=== PATIENT | male | born 1940 | race Asian ===

== ENCOUNTER 2022-03-06 09:44 | Inpatient (IN) | payer OTHER ==
[2022-03-06 10:01] VITALS: BMI 22.3
[2022-03-06] MEDS ORDERED: SODIUM CHLORIDE 1,769 ML IV ONE (10:20)
[2022-03-06 11:03] LABS: VENOUS BASE EXCESS 2.8 mmol/L (-2-2); VENOUS O2 SATURATION 63.5 % (70-80); VENOUS PCO2 40.3 mmHg (38-52); VENOUS PH 7.445 (7.310-7.410)
[2022-03-06 11:08] LABS: INR 1.29 (0.83-1.09); PROTHROMBIN TIME (PATIENT) 14.9 SEC (9.7-13.0)
[2022-03-06] MEDS ORDERED: NYSTATIN 500,000 UNITS/5 ML SUSPENSION PO ONE (11:09)
[2022-03-06] MEDS ORDERED: CEFTRIAXONE 1,000 MG in DEXTROSE 5%-WATER - 50 ML IVPB ONE (11:10)
[2022-03-06] MEDS ORDERED: AZITHROMYCIN IVPB 500 MG in DEXTROSE 5%-WATER - 250 ML IVPB ONE (11:10)
[2022-03-06 11:11] LABS: ACTIVATED PTT 31.6 SECONDS (25.2-36.5)
[2022-03-06] MEDS ORDERED: CEFTRIAXONE 1 GM/50 ML BAG ONE (11:16)
[2022-03-06 11:22] LABS: CHLORIDE 96 mmol/L (98-107); SODIUM 133 mmol/L (136-145)
[2022-03-06 11:24] LABS: ALBUMIN 2.2 g/dl (3.4-5.0); ANION GAP 10 MMOL/L (8-16); BLOOD UREA NITROGEN 11.8 mg/dL (7-18); CALCIUM 8.8 mg/dL (8.5-10.1); CO2 27 mmol/L (21-32); GLUCOSE,RANDOM 372 mg/dL (74-106)
[2022-03-06 11:27] LABS: CREATININE 0.8 mg/dL (0.55-1.3); SGOT/AST 49 U/L (15-37); SGPT/ALT 88 U/L (13-61)
[2022-03-06 11:29] LABS: BILIRUBIN,TOTAL 0.5 mg/dL (0.2-1); TOT PROT 7.9 g/dl (6.4-8.2)
[2022-03-06 11:30] LABS: ALK PHOS 148 U/L (45-117)
[2022-03-06] MEDS ORDERED: AZITHROMYCIN IVPB 500 MG/250 ML BAG IVPB ONE (11:37)
[2022-03-06 11:40] LABS: BASO % 0.3 % (0-2.0); EOS % 0.1 % (0-4.5); HEMATOCRIT 30.2 % (35.4-49); HEMOGLOBIN 9.7 GM/dL (11.7-16.9); LYMPH % 7.9 % (8-40); MCH 25.3 pg (25.7-33.7); MCHC 32.1 g/dl (32.0-35.9); MEAN CELL VOLUME 78.9 fl (80-96); MEAN PLT VOLUME 7.1 fl (7.5-11.1); MONO % 9.7 % (3.8-10.2); PLATELET COUNT 646 10^3/uL (134-434); RBC 3.83 M/mm3 (4.00-5.60); RDW 14.7 % (11.9-15.9)
[2022-03-06] MEDS ORDERED: INSULIN REGULAR HUMAN 100 UNITS/ML *VIAL SQ ONE (12:58)
[2022-03-06] MEDS ORDERED: VANCOMYCIN 1 GM in D5W (PRE-DOCKED) 1,000 MG/250 ML IVPB ONE (13:18)
[2022-03-06] MEDS ORDERED: ACETAMINOPHEN 1000 MG/100 ML BAG IVPB ONE (14:04)
[2022-03-06] MEDS ORDERED: VANCOMYCIN/WATER FOR INJ (PEG) 1,000 MG/200 ML BAG IVPB ONE (14:05)
[2022-03-06] MEDS ORDERED: INSULIN REGULAR HUMAN 100 UNITS/ML *VIAL ONE (14:06)
[2022-03-06] MEDS ORDERED: ACETAMINOPHEN INJECTION 100 ML IVPB ONE (14:30)
[2022-03-06] MEDS ORDERED: ENOXAPARIN NA (PORCINE) 40 MG/0.4 ML DISP.SYRIN SQ ONE (19:57)
[2022-03-06] MEDS: ENOXAPARIN NA (PORCINE) 40 MG/0.4 ML DISP.SYRIN SQ SCH (20:05)
[2022-03-06] MEDS: AMPICILLIN NA/SULBACTAM NA 3 GM in SODIUM CHLORIDE 100 ML IVPB SCH (20:05)
[2022-03-06] MEDS: D5-1/2NS+20 MEQ KCL - 20 MEQ/1,000 ML INFUS.BAG IV SCH (20:56)
[2022-03-06] MEDS: INSULIN SLIDING SCALE (NOVOLOG) 1 VIAL SQ SCH (23:13)
[2022-03-07] MEDS ORDERED: AMPICILLIN NA/SULBACTAM NA 3 GM VIAL ONE ×3 (00:47→18:15)
[2022-03-07] MEDS ORDERED: SODIUM CHLORIDE 100 ML IVPB ONE ×3 (00:48→18:15)
[2022-03-07] MEDS ORDERED: ACETAMINOPHEN INJECTION 100 ML IVPB ONE (00:48)
[2022-03-07] MEDS: AMPICILLIN NA/SULBACTAM NA 3 GM in SODIUM CHLORIDE 100 ML IVPB SCH ×3 (01:24→19:34)
[2022-03-07] MEDS: INSULIN SLIDING SCALE (NOVOLOG) 1 VIAL SQ SCH ×4 (06:18→22:57)
[2022-03-07 09:08] LABS: HEMATOCRIT 29.5 % (35.4-49); HEMOGLOBIN 9.4 GM/dL (11.7-16.9); MCH 24.9 pg (25.7-33.7); MCHC 31.8 g/dl (32.0-35.9); MEAN CELL VOLUME 78.4 fl (80-96); MEAN PLT VOLUME 7.2 fl (7.5-11.1); PLATELET COUNT 628 10^3/uL (134-434); RBC 3.76 M/mm3 (4.00-5.60); RDW 14.4 % (11.9-15.9); WHITE BLOOD COUNT 20.1 K/mm3 (4.0-10.0)
[2022-03-07 10:07] LABS: CREATININE 0.6 mg/dL (0.55-1.3)
[2022-03-07 10:08] LABS: BILIRUBIN,TOTAL 0.5 mg/dL (0.2-1); TOT PROT 6.3 g/dl (6.4-8.2)
[2022-03-07] MEDS: ENOXAPARIN NA (PORCINE) 40 MG/0.4 ML DISP.SYRIN SQ SCH (10:15)
[2022-03-07 10:39] LABS: ALBUMIN 1.7 g/dl (3.4-5.0)
[2022-03-07 12:36] LABS: ANISOCYTOSIS 1+; MACROCYTOSIS 0; TARGET CELLS 1+; TEAR DROP CELLS 1+
[2022-03-07] MEDS: D5-1/2NS+20 MEQ KCL - 20 MEQ/1,000 ML INFUS.BAG IV SCH ×2 (12:37→17:48)
[2022-03-08] MEDS ORDERED: AMPICILLIN NA/SULBACTAM NA 3 GM VIAL ONE ×3 (01:19→17:51)
[2022-03-08] MEDS ORDERED: SODIUM CHLORIDE 100 ML IVPB ONE ×3 (01:20→17:52)
[2022-03-08] MEDS: AMPICILLIN NA/SULBACTAM NA 3 GM in SODIUM CHLORIDE 100 ML IVPB SCH ×3 (01:32→18:06)
[2022-03-08] MEDS: INSULIN SLIDING SCALE (NOVOLOG) 1 VIAL SQ SCH ×4 (06:45→21:36)
[2022-03-08] MEDS ORDERED: INSULIN (LEVEMIR) 100 UNITS/ML UNITS SQ SCH ×2 (07:00→22:00)
[2022-03-08] MEDS: ENOXAPARIN NA (PORCINE) 40 MG/0.4 ML DISP.SYRIN SQ SCH (10:28)
[2022-03-08] MEDS: PANTOPRAZOLE 40 MG TABLET PO SCH (10:29)
[2022-03-08] MEDS: D5-1/2NS+20 MEQ KCL - 20 MEQ/1,000 ML INFUS.BAG IV SCH ×2 (12:47→18:13)
[2022-03-08 13:47] LABS: HEMATOCRIT 30.3 % (35.4-49); HEMOGLOBIN 9.8 GM/dL (11.7-16.9); MCH 25.2 pg (25.7-33.7); MCHC 32.3 g/dl (32.0-35.9); MEAN CELL VOLUME 77.9 fl (80-96); MEAN PLT VOLUME 6.9 fl (7.5-11.1); PLATELET COUNT 625 10^3/uL (134-434); RBC 3.89 M/mm3 (4.00-5.60); RDW 14.9 % (11.9-15.9); WHITE BLOOD COUNT 16.5 K/mm3 (4.0-10.0)
[2022-03-08 14:20] LABS: ALBUMIN 1.8 g/dl (3.4-5.0); BLOOD UREA NITROGEN 8.9 mg/dL (7-18); CALCIUM 8.4 mg/dL (8.5-10.1)
[2022-03-08 14:24] LABS: CREATININE 0.6 mg/dL (0.55-1.3)
[2022-03-08 14:25] LABS: BILIRUBIN,TOTAL 0.5 mg/dL (0.2-1); TOT PROT 6.5 g/dl (6.4-8.2)
[2022-03-08] MEDS: ACETAMINOPHEN 325 MG TABLET (FP) PO PRN (19:12)
[2022-03-09] MEDS ORDERED: AMPICILLIN NA/SULBACTAM NA 3 GM VIAL ONE ×3 (01:44→17:04)
[2022-03-09] MEDS ORDERED: SODIUM CHLORIDE 100 ML IVPB ONE ×3 (01:44→17:05)
[2022-03-09] MEDS: AMPICILLIN NA/SULBACTAM NA 3 GM in SODIUM CHLORIDE 100 ML IVPB SCH ×3 (01:52→17:15)
[2022-03-09] MEDS: D5-1/2NS+20 MEQ KCL - 20 MEQ/1,000 ML INFUS.BAG IV SCH ×3 (05:26→23:04)
[2022-03-09] MEDS ORDERED: INSULIN (LEVEMIR) 100 UNITS/ML UNITS SQ ONE (05:57)
[2022-03-09] MEDS: INSULIN (LEVEMIR) 100 UNITS/ML UNITS SQ SCH (06:33)
[2022-03-09] MEDS: INSULIN SLIDING SCALE (NOVOLOG) 1 VIAL SQ SCH ×4 (06:35→22:04)
[2022-03-09] MEDS: PANTOPRAZOLE 40 MG TABLET PO SCH (10:12)
[2022-03-09] MEDS: ENOXAPARIN NA (PORCINE) 40 MG/0.4 ML DISP.SYRIN SQ SCH (10:12)
[2022-03-09] MEDS: ACETAMINOPHEN 325 MG TABLET (FP) PO PRN (17:19)
[2022-03-10] MEDS ORDERED: SODIUM CHLORIDE 100 ML IVPB ONE (02:12)
[2022-03-10] MEDS ORDERED: AMPICILLIN NA/SULBACTAM NA 3 GM VIAL ONE (02:12)
[2022-03-10] MEDS: AMPICILLIN NA/SULBACTAM NA 3 GM in SODIUM CHLORIDE 100 ML IVPB SCH (02:21)
[2022-03-10] MEDS: INSULIN (LEVEMIR) 100 UNITS/ML UNITS SQ SCH (06:40)
[2022-03-10] MEDS: INSULIN SLIDING SCALE (NOVOLOG) 1 VIAL SQ SCH ×4 (06:42→22:32)
[2022-03-10 08:47] LABS: BASO % 0.3 % (0-2.0); EOS % 0.7 % (0-4.5); HEMATOCRIT 27.3 % (35.4-49); LYMPH % 8.7 % (8-40); MCH 25.4 pg (25.7-33.7); MCHC 33.1 g/dl (32.0-35.9); MEAN CELL VOLUME 76.8 fl (80-96); MEAN PLT VOLUME 6.8 fl (7.5-11.1); MONO % 8.2 % (3.8-10.2); NEUT % 82.1 % (42.8-82.8); PLATELET COUNT 598 10^3/uL (134-434); RBC 3.55 M/mm3 (4.00-5.60); RDW 15.1 % (11.9-15.9); WHITE BLOOD COUNT 13.1 K/mm3 (4.0-10.0)
[2022-03-10 09:12] LABS: CALCIUM 7.7 mg/dL (8.5-10.1)
[2022-03-10 09:13] LABS: ALBUMIN 1.6 g/dl (3.4-5.0); BLOOD UREA NITROGEN 5.3 mg/dL (7-18)
[2022-03-10 09:16] LABS: CREATININE 0.5 mg/dL (0.55-1.3)
[2022-03-10 09:17] LABS: TOT PROT 5.8 g/dl (6.4-8.2)
[2022-03-10 09:18] LABS: BILIRUBIN,TOTAL 0.4 mg/dL (0.2-1)
[2022-03-10] MEDS ORDERED: PIPERACILLIN/TAZOBACTAM 3.375 GM VIAL IVPB ONE ×2 (09:54→16:59)
[2022-03-10] MEDS ORDERED: DEXTROSE 5%-WATER - 50 ML IVPB ONE ×2 (09:54→16:59)
[2022-03-10] MEDS: ENOXAPARIN NA (PORCINE) 40 MG/0.4 ML DISP.SYRIN SQ SCH (10:11)
[2022-03-10] MEDS: PIPERACILLIN/TAZOB 3.375 GM 3.375 GM in DEXTROSE 5%-WATER - 50 ML IVPB SCH ×2 (10:11→17:32)
[2022-03-10] MEDS: PANTOPRAZOLE 40 MG TABLET PO SCH (10:11)
[2022-03-10] MEDS: D5-1/2NS+20 MEQ KCL - 20 MEQ/1,000 ML INFUS.BAG IV SCH ×2 (14:14→17:32)
[2022-03-10] MEDS: ACETAMINOPHEN 325 MG TABLET (FP) PO PRN (17:49)
[2022-03-11] MEDS ORDERED: PIPERACILLIN/TAZOBACTAM 3.375 GM VIAL IVPB ONE ×2 (01:30→10:25)
[2022-03-11] MEDS ORDERED: DEXTROSE 5%-WATER - 50 ML IVPB ONE ×2 (01:31→10:25)
[2022-03-11] MEDS: PIPERACILLIN/TAZOB 3.375 GM 3.375 GM in DEXTROSE 5%-WATER - 50 ML IVPB SCH ×2 (01:51→10:41)
[2022-03-11] MEDS: INSULIN SLIDING SCALE (NOVOLOG) 1 VIAL SQ SCH ×4 (06:54→22:06)
[2022-03-11] MEDS: INSULIN (LEVEMIR) 100 UNITS/ML UNITS SQ SCH (06:54)
[2022-03-11] MEDS: PANTOPRAZOLE 40 MG TABLET PO SCH (10:41)
[2022-03-11] MEDS: ENOXAPARIN NA (PORCINE) 40 MG/0.4 ML DISP.SYRIN SQ SCH (10:41)
[2022-03-11] MEDS: ERTAPENEM SODIUM 1 GM in SODIUM CHLORIDE 50 ML IVPB SCH (14:31)
[2022-03-11] MEDS: D5-1/2NS+20 MEQ KCL - 20 MEQ/1,000 ML INFUS.BAG IV SCH ×2 (14:31→17:23)
[2022-03-11] MEDS ORDERED: ACETAMINOPHEN 1000 MG/100 ML BAG IVPB ONE (21:03)
[2022-03-12] MEDS: INSULIN SLIDING SCALE (NOVOLOG) 1 VIAL SQ SCH ×4 (07:35→22:17)
[2022-03-12] MEDS: INSULIN (LEVEMIR) 100 UNITS/ML UNITS SQ SCH (07:35)
[2022-03-12] MEDS: ENOXAPARIN NA (PORCINE) 40 MG/0.4 ML DISP.SYRIN SQ SCH (10:08)
[2022-03-12] MEDS: ERTAPENEM SODIUM 1 GM in SODIUM CHLORIDE 50 ML IVPB SCH (10:08)
[2022-03-12] MEDS: PANTOPRAZOLE 40 MG TABLET PO SCH (10:08)
[2022-03-12] MEDS: D5-1/2NS+20 MEQ KCL - 20 MEQ/1,000 ML INFUS.BAG IV SCH (18:00)
[2022-03-12 18:36] LABS: HIV INTERPRETATION NEGATIVE (NEGATIVE)
[2022-03-13] MEDS: INSULIN (LEVEMIR) 100 UNITS/ML UNITS SQ SCH (06:41)
[2022-03-13] MEDS: INSULIN SLIDING SCALE (NOVOLOG) 1 VIAL SQ SCH ×4 (06:43→22:24)
[2022-03-13] MEDS: D5-1/2NS+20 MEQ KCL - 20 MEQ/1,000 ML INFUS.BAG IV SCH ×2 (06:48→17:33)
[2022-03-13] MEDS: ISONIAZID 300 MG TABLET (FP) PO SCH (09:21)
[2022-03-13] MEDS: ENOXAPARIN NA (PORCINE) 40 MG/0.4 ML DISP.SYRIN SQ SCH (09:22)
[2022-03-13] MEDS: PANTOPRAZOLE 40 MG TABLET PO SCH (09:23)
[2022-03-13] MEDS: PYRIDOXINE HCL (B-6) 50 MG TABLET (FP) PO SCH (09:24)
[2022-03-13] MEDS: RIFAMPIN 300 MG CAPSULE PO SCH (09:26)
[2022-03-13] MEDS: PYRAZINAMIDE 500 MG TABLET PO SCH (09:27)
[2022-03-13] MEDS: ETHAMBUTOL HCL 400 MG TABLET PO SCH (09:27)
[2022-03-13 09:34] LABS: ALBUMIN 1.7 g/dl (3.4-5.0); BILIRUBIN,TOTAL 0.3 mg/dL (0.2-1); BLOOD UREA NITROGEN 5.9 mg/dL (7-18)
[2022-03-13 09:37] LABS: CREATININE 0.7 mg/dL (0.55-1.3)
[2022-03-13 09:38] LABS: TOT PROT 6.2 g/dl (6.4-8.2)
[2022-03-13 14:29] LABS: HEMATOCRIT 32.4 % (35.4-49); HEMOGLOBIN 10.3 GM/dL (11.7-16.9); MCH 24.8 pg (25.7-33.7); MCHC 31.9 g/dl (32.0-35.9); MEAN CELL VOLUME 77.8 fl (80-96); MEAN PLT VOLUME 6.6 fl (7.5-11.1); PLATELET COUNT 722 10^3/uL (134-434); RBC 4.16 M/mm3 (4.00-5.60); RDW 15.1 % (11.9-15.9); WHITE BLOOD COUNT 11.5 K/mm3 (4.0-10.0)
[2022-03-13 14:56] LABS: CALCIUM 8.6 mg/dL (8.5-10.1)
[2022-03-13 14:57] LABS: BLOOD UREA NITROGEN 7.3 mg/dL (7-18); MAGNESIUM 2.3 mg/dL (1.8-2.4)
[2022-03-13 15:00] LABS: CREATININE 0.6 mg/dL (0.55-1.3)
[2022-03-13 15:01] LABS: BILIRUBIN,TOTAL 1.2 mg/dL (0.2-1); TOT PROT 7.3 g/dl (6.4-8.2)
[2022-03-14] MEDS: D5-1/2NS+20 MEQ KCL - 20 MEQ/1,000 ML INFUS.BAG IV SCH ×2 (06:48→19:08)
[2022-03-14] MEDS: INSULIN (LEVEMIR) 100 UNITS/ML UNITS SQ SCH (06:50)
[2022-03-14] MEDS: INSULIN SLIDING SCALE (NOVOLOG) 1 VIAL SQ SCH ×4 (06:50→23:09)
[2022-03-14] MEDS: ISONIAZID 300 MG TABLET (FP) PO SCH (09:32)
[2022-03-14] MEDS: ETHAMBUTOL HCL 400 MG TABLET PO SCH (09:33)
[2022-03-14] MEDS: ENOXAPARIN NA (PORCINE) 40 MG/0.4 ML DISP.SYRIN SQ SCH (09:33)
[2022-03-14] MEDS: PYRAZINAMIDE 500 MG TABLET PO SCH (09:34)
[2022-03-14] MEDS: PANTOPRAZOLE 40 MG TABLET PO SCH (09:34)
[2022-03-14] MEDS: RIFAMPIN 300 MG CAPSULE PO SCH (09:35)
[2022-03-14] MEDS: PYRIDOXINE HCL (B-6) 50 MG TABLET (FP) PO SCH (09:35)
[2022-03-14 09:41] LABS: ALBUMIN 1.8 g/dl (3.4-5.0); BLOOD UREA NITROGEN 8.2 mg/dL (7-18); CALCIUM 8.2 mg/dL (8.5-10.1)
[2022-03-14 09:44] LABS: CREATININE 0.7 mg/dL (0.55-1.3)
[2022-03-14 09:46] LABS: BILIRUBIN,TOTAL 0.9 mg/dL (0.2-1); TOT PROT 6.4 g/dl (6.4-8.2)
[2022-03-15] MEDS: INSULIN (LEVEMIR) 100 UNITS/ML UNITS SQ SCH (06:11)
[2022-03-15] MEDS: INSULIN SLIDING SCALE (NOVOLOG) 1 VIAL SQ SCH ×4 (06:11→21:49)
[2022-03-15] MEDS: ISONIAZID 300 MG TABLET (FP) PO SCH (11:04)
[2022-03-15] MEDS: PYRIDOXINE HCL (B-6) 50 MG TABLET (FP) PO SCH (11:04)
[2022-03-15] MEDS: RIFAMPIN 300 MG CAPSULE PO SCH (11:04)
[2022-03-15] MEDS: ENOXAPARIN NA (PORCINE) 40 MG/0.4 ML DISP.SYRIN SQ SCH (11:04)
[2022-03-15] MEDS: PANTOPRAZOLE 40 MG TABLET PO SCH (11:04)
[2022-03-15] MEDS: ETHAMBUTOL HCL 400 MG TABLET PO SCH (11:05)
[2022-03-15] MEDS: PYRAZINAMIDE 500 MG TABLET PO SCH (11:09)
[2022-03-15] MEDS: D5-1/2NS+20 MEQ KCL - 20 MEQ/1,000 ML INFUS.BAG IV SCH (16:21)
[2022-03-16] MEDS: INSULIN (LEVEMIR) 100 UNITS/ML UNITS SQ SCH (06:44)
[2022-03-16] MEDS: INSULIN SLIDING SCALE (NOVOLOG) 1 VIAL SQ SCH ×4 (06:44→21:26)
[2022-03-16 09:29] LABS: CALCIUM 8.5 mg/dL (8.5-10.1)
[2022-03-16 09:30] LABS: ALBUMIN 1.8 g/dl (3.4-5.0); BLOOD UREA NITROGEN 7.3 mg/dL (7-18)
[2022-03-16 09:33] LABS: CREATININE 0.6 mg/dL (0.55-1.3)
[2022-03-16 09:34] LABS: BILIRUBIN,TOTAL 0.6 mg/dL (0.2-1); TOT PROT 6.6 g/dl (6.4-8.2)
[2022-03-16] MEDS: ENOXAPARIN NA (PORCINE) 40 MG/0.4 ML DISP.SYRIN SQ SCH (10:03)
[2022-03-16] MEDS: D5-1/2NS+20 MEQ KCL - 20 MEQ/1,000 ML INFUS.BAG IV SCH ×2 (10:03→17:25)
[2022-03-16] MEDS: RIFAMPIN 300 MG CAPSULE PO SCH (10:04)
[2022-03-16] MEDS: PYRAZINAMIDE 500 MG TABLET PO SCH (10:04)
[2022-03-16] MEDS: ISONIAZID 300 MG TABLET (FP) PO SCH (10:04)
[2022-03-16] MEDS: PYRIDOXINE HCL (B-6) 50 MG TABLET (FP) PO SCH (10:04)
[2022-03-16] MEDS: PANTOPRAZOLE 40 MG TABLET PO SCH (10:04)
[2022-03-16] MEDS: ETHAMBUTOL HCL 400 MG TABLET PO SCH (10:04)
[2022-03-17] MEDS: D5-1/2NS+20 MEQ KCL - 20 MEQ/1,000 ML INFUS.BAG IV SCH ×2 (06:37→17:21)
[2022-03-17] MEDS: INSULIN (LEVEMIR) 100 UNITS/ML UNITS SQ SCH (06:38)
[2022-03-17] MEDS: INSULIN SLIDING SCALE (NOVOLOG) 1 VIAL SQ SCH ×4 (06:38→21:20)
[2022-03-17] MEDS: RIFAMPIN 300 MG CAPSULE PO SCH (11:03)
[2022-03-17] MEDS: PYRIDOXINE HCL (B-6) 50 MG TABLET (FP) PO SCH (11:03)
[2022-03-17] MEDS: ISONIAZID 300 MG TABLET (FP) PO SCH (11:04)
[2022-03-17] MEDS: ETHAMBUTOL HCL 400 MG TABLET PO SCH (11:04)
[2022-03-17] MEDS: ENOXAPARIN NA (PORCINE) 40 MG/0.4 ML DISP.SYRIN SQ SCH (11:04)
[2022-03-17] MEDS: PANTOPRAZOLE 40 MG TABLET PO SCH (11:05)
[2022-03-17] MEDS: PYRAZINAMIDE 500 MG TABLET PO SCH (11:05)
[2022-03-18] MEDS: INSULIN (LEVEMIR) 100 UNITS/ML UNITS SQ SCH (06:24)
[2022-03-18] MEDS: INSULIN SLIDING SCALE (NOVOLOG) 1 VIAL SQ SCH ×4 (06:24→21:31)
[2022-03-18] MEDS: D5-1/2NS+20 MEQ KCL - 20 MEQ/1,000 ML INFUS.BAG IV SCH ×2 (06:25→21:31)
[2022-03-18 09:15] LABS: EOS % 1.8 % (0-4.5); HEMATOCRIT 29.6 % (35.4-49); HEMOGLOBIN 9.7 GM/dL (11.7-16.9); LYMPH % 16.4 % (8-40); MCH 25.4 pg (25.7-33.7); MCHC 32.7 g/dl (32.0-35.9); MEAN CELL VOLUME 77.7 fl (80-96); MEAN PLT VOLUME 6.2 fl (7.5-11.1); MONO % 8.5 % (3.8-10.2); NEUT % 72.3 % (42.8-82.8); PLATELET COUNT 737 10^3/uL (134-434); RBC 3.81 M/mm3 (4.00-5.60); RDW 15.8 % (11.9-15.9); WHITE BLOOD COUNT 10.9 K/mm3 (4.0-10.0)
[2022-03-18] MEDS: ISONIAZID 300 MG TABLET (FP) PO SCH (09:23)
[2022-03-18] MEDS: PYRIDOXINE HCL (B-6) 50 MG TABLET (FP) PO SCH (09:23)
[2022-03-18] MEDS: ETHAMBUTOL HCL 400 MG TABLET PO SCH (09:23)
[2022-03-18] MEDS: RIFAMPIN 300 MG CAPSULE PO SCH (09:23)
[2022-03-18] MEDS: ENOXAPARIN NA (PORCINE) 40 MG/0.4 ML DISP.SYRIN SQ SCH (09:24)
[2022-03-18] MEDS: PYRAZINAMIDE 500 MG TABLET PO SCH (09:26)
[2022-03-18 09:34] LABS: CALCIUM 8.8 mg/dL (8.5-10.1)
[2022-03-18 09:35] LABS: ALBUMIN 2.1 g/dl (3.4-5.0); BLOOD UREA NITROGEN 6.2 mg/dL (7-18)
[2022-03-18 09:38] LABS: CREATININE 0.6 mg/dL (0.55-1.3)
[2022-03-18 09:40] LABS: BILIRUBIN,TOTAL 0.5 mg/dL (0.2-1); TOT PROT 7.7 g/dl (6.4-8.2)
[2022-03-18] MEDS: PANTOPRAZOLE 40 MG TABLET PO SCH (11:35)
[2022-03-19] MEDS: INSULIN SLIDING SCALE (NOVOLOG) 1 VIAL SQ SCH ×4 (06:39→22:42)
[2022-03-19] MEDS: INSULIN (LEVEMIR) 100 UNITS/ML UNITS SQ SCH (06:41)
[2022-03-19] MEDS: RIFAMPIN 300 MG CAPSULE PO SCH (10:08)
[2022-03-19] MEDS: PANTOPRAZOLE 40 MG TABLET PO SCH (10:08)
[2022-03-19] MEDS: PYRAZINAMIDE 500 MG TABLET PO SCH (10:08)
[2022-03-19] MEDS: ENOXAPARIN NA (PORCINE) 40 MG/0.4 ML DISP.SYRIN SQ SCH (10:08)
[2022-03-19] MEDS: ETHAMBUTOL HCL 400 MG TABLET PO SCH (10:08)
[2022-03-19] MEDS: ISONIAZID 300 MG TABLET (FP) PO SCH (10:09)
[2022-03-19] MEDS: PYRIDOXINE HCL (B-6) 50 MG TABLET (FP) PO SCH (10:09)
[2022-03-19] MEDS: D5-1/2NS+20 MEQ KCL - 20 MEQ/1,000 ML INFUS.BAG IV SCH ×2 (15:43→17:31)
[2022-03-20] MEDS: INSULIN (LEVEMIR) 100 UNITS/ML UNITS SQ SCH (06:51)
[2022-03-20] MEDS: INSULIN SLIDING SCALE (NOVOLOG) 1 VIAL SQ SCH ×4 (06:55→22:08)
[2022-03-20 09:13] LABS: HEMATOCRIT 30.1 % (35.4-49); HEMOGLOBIN 9.8 GM/dL (11.7-16.9); MCH 25.4 pg (25.7-33.7); MCHC 32.5 g/dl (32.0-35.9); MEAN PLT VOLUME 6.2 fl (7.5-11.1); PLATELET COUNT 771 10^3/uL (134-434); RBC 3.85 M/mm3 (4.00-5.60); RDW 15.9 % (11.9-15.9); WHITE BLOOD COUNT 8.8 K/mm3 (4.0-10.0)
[2022-03-20] MEDS: PANTOPRAZOLE 40 MG TABLET PO SCH (10:05)
[2022-03-20] MEDS: RIFAMPIN 300 MG CAPSULE PO SCH (10:06)
[2022-03-20] MEDS: PYRAZINAMIDE 500 MG TABLET PO SCH (10:06)
[2022-03-20] MEDS: ETHAMBUTOL HCL 400 MG TABLET PO SCH (10:06)
[2022-03-20] MEDS: ISONIAZID 300 MG TABLET (FP) PO SCH (10:07)
[2022-03-20] MEDS: PYRIDOXINE HCL (B-6) 50 MG TABLET (FP) PO SCH (10:07)
[2022-03-20 10:47] LABS: ALBUMIN 2.2 g/dl (3.4-5.0)
[2022-03-20 10:49] LABS: BLOOD UREA NITROGEN 5.9 mg/dL (7-18)
[2022-03-20 10:51] LABS: CREATININE 0.7 mg/dL (0.55-1.3)
[2022-03-20 10:53] LABS: BILIRUBIN,TOTAL 0.4 mg/dL (0.2-1); CALCIUM 8.8 mg/dL (8.5-10.1); TOT PROT 7.7 g/dl (6.4-8.2)
[2022-03-20] MEDS: D5-1/2NS+20 MEQ KCL - 20 MEQ/1,000 ML INFUS.BAG IV SCH (22:08)
[2022-03-21] MEDS: INSULIN SLIDING SCALE (NOVOLOG) 1 VIAL SQ SCH ×4 (06:46→23:00)
[2022-03-21] MEDS: INSULIN (LEVEMIR) 100 UNITS/ML UNITS SQ SCH (06:48)
[2022-03-21] MEDS: RIFAMPIN 300 MG CAPSULE PO SCH ×2 (09:45→09:48)
[2022-03-21] MEDS: PANTOPRAZOLE 40 MG TABLET PO SCH (09:45)
[2022-03-21] MEDS: PYRAZINAMIDE 500 MG TABLET PO SCH ×2 (09:46→09:48)
[2022-03-21] MEDS: PYRIDOXINE HCL (B-6) 50 MG TABLET (FP) PO SCH ×2 (09:46→09:48)
[2022-03-21] MEDS: ISONIAZID 300 MG TABLET (FP) PO SCH ×2 (09:46→09:47)
[2022-03-21] MEDS: ETHAMBUTOL HCL 400 MG TABLET PO SCH ×2 (09:46→09:47)
[2022-03-21] MEDS ORDERED: INSULIN (NOVOLOG) ASPART 100 UNITS/ML 10ML VIAL ONE (21:08)
[2022-03-22] MEDS: INSULIN (LEVEMIR) 100 UNITS/ML UNITS SQ SCH (06:45)
[2022-03-22] MEDS: INSULIN SLIDING SCALE (NOVOLOG) 1 VIAL SQ SCH ×4 (06:45→23:05)
[2022-03-22 08:28] LABS: HEMATOCRIT 28.7 % (35.4-49); HEMOGLOBIN 9.4 GM/dL (11.7-16.9); MCH 25.3 pg (25.7-33.7); MCHC 32.8 g/dl (32.0-35.9); MEAN CELL VOLUME 77.2 fl (80-96); MEAN PLT VOLUME 6.1 fl (7.5-11.1); PLATELET COUNT 636 10^3/uL (134-434); RBC 3.72 M/mm3 (4.00-5.60); RDW 15.9 % (11.9-15.9); WHITE BLOOD COUNT 7.8 K/mm3 (4.0-10.0)
[2022-03-22 08:58] LABS: CALCIUM 8.4 mg/dL (8.5-10.1)
[2022-03-22 08:59] LABS: ALBUMIN 2.1 g/dl (3.4-5.0); BLOOD UREA NITROGEN 5.8 mg/dL (7-18)
[2022-03-22 09:02] LABS: CREATININE 0.6 mg/dL (0.55-1.3)
[2022-03-22 09:03] LABS: BILIRUBIN,TOTAL 1.1 mg/dL (0.2-1); TOT PROT 7.5 g/dl (6.4-8.2)
[2022-03-22] MEDS: ISONIAZID 300 MG TABLET (FP) PO SCH (09:59)
[2022-03-22] MEDS: ETHAMBUTOL HCL 400 MG TABLET PO SCH (10:00)
[2022-03-22] MEDS: PANTOPRAZOLE 40 MG TABLET PO SCH (10:01)
[2022-03-22] MEDS: PYRAZINAMIDE 500 MG TABLET PO SCH (10:02)
[2022-03-22] MEDS: PYRIDOXINE HCL (B-6) 50 MG TABLET (FP) PO SCH (10:03)
[2022-03-22] MEDS: RIFAMPIN 300 MG CAPSULE PO SCH (10:03)
[2022-03-23] MEDS: INSULIN (LEVEMIR) 100 UNITS/ML UNITS SQ SCH (06:46)
[2022-03-23] MEDS: INSULIN SLIDING SCALE (NOVOLOG) 1 VIAL SQ SCH ×4 (06:47→23:01)
[2022-03-23] MEDS: D5-1/2NS+20 MEQ KCL - 20 MEQ/1,000 ML INFUS.BAG IV SCH ×4 (06:47→17:15)
[2022-03-23] MEDS: PANTOPRAZOLE 40 MG TABLET PO SCH (09:25)
[2022-03-23] MEDS: PYRIDOXINE HCL (B-6) 50 MG TABLET (FP) PO SCH (09:25)
[2022-03-23] MEDS: ETHAMBUTOL HCL 400 MG TABLET PO SCH (09:25)
[2022-03-23] MEDS: ISONIAZID 300 MG TABLET (FP) PO SCH (09:25)
[2022-03-23] MEDS: PYRAZINAMIDE 500 MG TABLET PO SCH (09:25)
[2022-03-23] MEDS: RIFAMPIN 300 MG CAPSULE PO SCH (09:25)
[2022-03-24] MEDS: INSULIN (LEVEMIR) 100 UNITS/ML UNITS SQ SCH (06:31)
[2022-03-24] MEDS: INSULIN SLIDING SCALE (NOVOLOG) 1 VIAL SQ SCH ×4 (06:45→22:17)
[2022-03-24] MEDS: PANTOPRAZOLE 40 MG TABLET PO SCH (09:58)
[2022-03-24] MEDS: D5-1/2NS+20 MEQ KCL - 20 MEQ/1,000 ML INFUS.BAG IV SCH ×3 (09:58→22:17)
[2022-03-24] MEDS: PYRIDOXINE HCL (B-6) 50 MG TABLET (FP) PO SCH (09:59)
[2022-03-24] MEDS: ETHAMBUTOL HCL 400 MG TABLET PO SCH (09:59)
[2022-03-24] MEDS: PYRAZINAMIDE 500 MG TABLET PO SCH (10:00)
[2022-03-24] MEDS: ISONIAZID 300 MG TABLET (FP) PO SCH (10:00)
[2022-03-24] MEDS: RIFAMPIN 300 MG CAPSULE PO SCH (10:00)
[2022-03-24 10:18] LABS: BASO % 1.2 % (0-2.0); EOS % 3.5 % (0-4.5); HEMATOCRIT 28.8 % (35.4-49); HEMOGLOBIN 9.5 GM/dL (11.7-16.9); LYMPH % 17.1 % (8-40); MCH 25.6 pg (25.7-33.7); MCHC 32.9 g/dl (32.0-35.9); MEAN CELL VOLUME 77.8 fl (80-96); MEAN PLT VOLUME 6.3 fl (7.5-11.1); MONO % 10.9 % (3.8-10.2); NEUT % 67.3 % (42.8-82.8); PLATELET COUNT 570 10^3/uL (134-434); RDW 16.5 % (11.9-15.9); WHITE BLOOD COUNT 8.5 K/mm3 (4.0-10.0)
[2022-03-24 10:37] LABS: CALCIUM 8.1 mg/dL (8.5-10.1)
[2022-03-24 10:38] LABS: BLOOD UREA NITROGEN 6.2 mg/dL (7-18)
[2022-03-24 10:41] LABS: CREATININE 0.6 mg/dL (0.55-1.3)
[2022-03-24 10:42] LABS: BILIRUBIN,TOTAL 0.3 mg/dL (0.2-1)
[2022-03-24 10:43] LABS: TOT PROT 7.4 g/dl (6.4-8.2)
[2022-03-25] MEDS: INSULIN (LEVEMIR) 100 UNITS/ML UNITS SQ SCH (06:50)
[2022-03-25] MEDS: INSULIN SLIDING SCALE (NOVOLOG) 1 VIAL SQ SCH ×4 (06:51→21:25)
[2022-03-25] MEDS: RIFAMPIN 300 MG CAPSULE PO SCH (09:38)
[2022-03-25] MEDS: PANTOPRAZOLE 40 MG TABLET PO SCH (09:38)
[2022-03-25] MEDS: ETHAMBUTOL HCL 400 MG TABLET PO SCH (09:38)
[2022-03-25] MEDS: ISONIAZID 300 MG TABLET (FP) PO SCH (09:38)
[2022-03-25] MEDS: PYRIDOXINE HCL (B-6) 50 MG TABLET (FP) PO SCH (09:39)
[2022-03-25] MEDS: PYRAZINAMIDE 500 MG TABLET PO SCH (09:39)
[2022-03-25] MEDS: D5-1/2NS+20 MEQ KCL - 20 MEQ/1,000 ML INFUS.BAG IV SCH ×2 (11:56→18:10)
[2022-03-26] MEDS: INSULIN (LEVEMIR) 100 UNITS/ML UNITS SQ SCH (06:21)
[2022-03-26] MEDS: INSULIN SLIDING SCALE (NOVOLOG) 1 VIAL SQ SCH ×4 (06:21→21:43)
[2022-03-26] MEDS ORDERED: INSULIN (NOVOLOG) ASPART 100 UNITS/ML 10ML VIAL ONE (06:36)
[2022-03-26] MEDS: PYRIDOXINE HCL (B-6) 50 MG TABLET (FP) PO SCH (09:47)
[2022-03-26] MEDS: RIFAMPIN 300 MG CAPSULE PO SCH (09:47)
[2022-03-26] MEDS: ETHAMBUTOL HCL 400 MG TABLET PO SCH (09:47)
[2022-03-26] MEDS: PANTOPRAZOLE 40 MG TABLET PO SCH (09:47)
[2022-03-26] MEDS: ISONIAZID 300 MG TABLET (FP) PO SCH (09:47)
[2022-03-26] MEDS: PYRAZINAMIDE 500 MG TABLET PO SCH (09:47)
[2022-03-27 06:43] VITALS: RESP 18
[2022-03-27] MEDS: INSULIN SLIDING SCALE (NOVOLOG) 1 VIAL SQ SCH ×2 (07:09→12:59)
[2022-03-27] MEDS: INSULIN (LEVEMIR) 100 UNITS/ML UNITS SQ SCH (07:10)
[2022-03-27] MEDS: PANTOPRAZOLE 40 MG TABLET PO SCH (10:18)
[2022-03-27] MEDS: ISONIAZID 300 MG TABLET (FP) PO SCH (10:19)
[2022-03-27] MEDS: RIFAMPIN 300 MG CAPSULE PO SCH (10:19)
[2022-03-27] MEDS: PYRIDOXINE HCL (B-6) 50 MG TABLET (FP) PO SCH (10:19)
[2022-03-27] MEDS: ETHAMBUTOL HCL 400 MG TABLET PO SCH (10:19)
[2022-03-27] MEDS: PYRAZINAMIDE 500 MG TABLET PO SCH (10:20)
[2022-03-27 14:01] VITALS: BP 116/68; PULSE 87; TEMP 97.8
== END 2022-03-27 18:30 | disposition home or self-care (01) | DRG 178 ==
LOC: JER 09:44 → JERBED 13:21 → J8W 23:01
PROVIDERS: ADMIT Family Medicine; ATTEND Family Medicine
DX: A15.0 Tuberculosis of lung (principal); B37.0 Candidal stomatitis; E46 Unspecified protein-calorie malnutrition; E87.1 Hypo-osmolality and hyponatremia; R64 Cachexia; J18.9 Pneumonia, unspecified organism; J98.4 Other disorders of lung; E11.40 Type 2 diabetes mellitus with diabetic neuropathy, unspecified; E11.65 Type 2 diabetes mellitus with hyperglycemia; Z68.22 Body mass index [BMI] 22.0-22.9, adult; D72.829 Elevated white blood cell count, unspecified; R74.01 Elevation of levels of liver transaminase levels; E86.0 Dehydration
CPT/HCPCS: 0241U-QW; 36415; 70450-TC; 71045-TC-FY; 71250-TC; 76705-TC; 80053; 82550; 82553; 82803; 82962; 83036; 83605; 83735; 84443; 84484; 85025; 85027; 85610; 85730; 86480; 86850; 86900; 86901; 87040; 87070; 87077; 87102; 87116; 87186; 87205; 87206; 87210; 87305; 87389; 87449; 93005; 93010; 97116-GP; 97161-GP; 99285-25

== ENCOUNTER 2022-08-20 14:26 | Inpatient (IN) | payer OTHER ==
[2022-08-20] MEDS ORDERED: LACTATED RINGERS SOLUTION 1000 ML INFUS.BAG IV ONE (17:08)
[2022-08-20 18:00] LABS: BASO % 0.5 % (0-2.0); EOS % 0.4 % (0-4.5); HEMATOCRIT 26.1 % (35.4-49); HEMOGLOBIN 8.2 GM/dL (11.7-16.9); LYMPH % 6.2 % (8-40); MCH 24.8 pg (25.7-33.7); MCHC 31.3 g/dl (32.0-35.9); MEAN CELL VOLUME 79.2 fl (80-96); MEAN PLT VOLUME 6.3 fl (7.5-11.1); MONO % 4.7 % (3.8-10.2); NEUT % 88.2 % (42.8-82.8); PLATELET COUNT 625 10^3/uL (134-434); RDW 18.9 % (11.9-15.9); WHITE BLOOD COUNT 10.6 K/mm3 (4.0-10.0)
[2022-08-20 18:21] LABS: CALCIUM 8.9 mg/dL (8.5-10.1)
[2022-08-20 18:22] LABS: BLOOD UREA NITROGEN 7.1 mg/dL (7-18); MAGNESIUM 2.1 mg/dL (1.8-2.4)
[2022-08-20 18:25] LABS: CREATININE 0.9 mg/dL (0.55-1.3)
[2022-08-20 18:26] LABS: BILIRUBIN,TOTAL 0.6 mg/dL (0.2-1)
[2022-08-20] MEDS ORDERED: DOCUSATE SODIUM 100 MG CAPSULE (FP) PO PRN (19:59)
[2022-08-20] MEDS ORDERED: ACETAMINOPHEN 325 MG TABLET (FP) PO PRN (19:59)
[2022-08-20] MEDS: INSULIN SLIDING SCALE (NOVOLOG) 1 VIAL SQ SCH (23:06)
[2022-08-21] MEDS: INSULIN SLIDING SCALE (NOVOLOG) 1 VIAL SQ SCH ×4 (06:59→22:51)
[2022-08-21 08:47] LABS: BASO % 1.5 % (0-2.0); EOS % 3.2 % (0-4.5); HEMATOCRIT 24.2 % (35.4-49); HEMOGLOBIN 7.5 GM/dL (11.7-16.9); LYMPH % 24.6 % (8-40); MCH 24.8 pg (25.7-33.7); MCHC 30.9 g/dl (32.0-35.9); MEAN CELL VOLUME 80.2 fl (80-96); MEAN PLT VOLUME 6.5 fl (7.5-11.1); MONO % 7.5 % (3.8-10.2); NEUT % 63.2 % (42.8-82.8); PLATELET COUNT 609 10^3/uL (134-434); RBC 3.01 M/mm3 (4.00-5.60); RDW 18.8 % (11.9-15.9); WHITE BLOOD COUNT 7.9 K/mm3 (4.0-10.0)
[2022-08-21 08:58] LABS: CALCIUM 8.5 mg/dL (8.5-10.1)
[2022-08-21 08:59] LABS: BLOOD UREA NITROGEN 6.4 mg/dL (7-18); MAGNESIUM 1.9 mg/dL (1.8-2.4)
[2022-08-21 09:02] LABS: CREATININE 0.8 mg/dL (0.55-1.3); PHOSPHOROUS 3.7 mg/dL (2.5-4.9)
[2022-08-21 09:10] LABS: INR 1.32 (0.83-1.09); PROTHROMBIN TIME (PATIENT) 15.2 SEC (9.7-13.0)
[2022-08-21] MEDS ORDERED: SODIUM CHLORIDE 1,000 ML IV SCH (09:15)
[2022-08-21] MEDS: PANTOPRAZOLE 40 MG TABLET PO SCH (14:40)
[2022-08-21] MEDS ORDERED: PANTOPRAZOLE 40 MG TABLET PO ONE (14:41)
[2022-08-21] MEDS ORDERED: IRON SUCROSE INJECTION 200 MG in SODIUM CHLORIDE 90 ML IVPB ONE (15:00)
[2022-08-22 08:38] LABS: CALCIUM 8.1 mg/dL (8.5-10.1)
[2022-08-22 08:39] LABS: ALBUMIN 1.9 g/dl (3.4-5.0); BLOOD UREA NITROGEN 5.7 mg/dL (7-18)
[2022-08-22 08:42] LABS: CREATININE 0.7 mg/dL (0.55-1.3)
[2022-08-22 08:43] LABS: BILIRUBIN,TOTAL 0.3 mg/dL (0.2-1); TOT PROT 6.9 g/dl (6.4-8.2)
[2022-08-22] MEDS: INSULIN SLIDING SCALE (NOVOLOG) 1 VIAL SQ SCH ×4 (08:43→22:00)
[2022-08-22] MEDS ORDERED: PANTOPRAZOLE 40 MG TABLET PO ONE (10:23)
[2022-08-22] MEDS: PANTOPRAZOLE 40 MG TABLET PO SCH (10:31)
[2022-08-23] MEDS: INSULIN SLIDING SCALE (NOVOLOG) 1 VIAL SQ SCH ×4 (06:22→23:35)
[2022-08-23] MEDS: RIFAMPIN 300 MG CAPSULE PO SCH (09:24)
[2022-08-23] MEDS: ISONIAZID 300 MG TABLET (FP) PO SCH (09:24)
[2022-08-23] MEDS: PANTOPRAZOLE 40 MG TABLET PO SCH (09:24)
[2022-08-23] MEDS: PYRIDOXINE HCL (B-6) 50 MG TABLET (FP) PO SCH (09:25)
[2022-08-23 10:40] LABS: HEMATOCRIT 26.6 % (35.4-49); HEMOGLOBIN 8.3 GM/dL (11.7-16.9); MCHC 31.2 g/dl (32.0-35.9); MEAN CELL VOLUME 80.1 fl (80-96); MEAN PLT VOLUME 6.2 fl (7.5-11.1); PLATELET COUNT 621 10^3/uL (134-434); RBC 3.31 M/mm3 (4.00-5.60); RDW 19.4 % (11.9-15.9); WHITE BLOOD COUNT 8.5 K/mm3 (4.0-10.0)
[2022-08-23 11:11] LABS: CALCIUM 8.4 mg/dL (8.5-10.1)
[2022-08-23 11:13] LABS: BLOOD UREA NITROGEN 4.9 mg/dL (7-18)
[2022-08-23 11:15] LABS: CREATININE 0.8 mg/dL (0.55-1.3)
[2022-08-23] MEDS ORDERED: IRON SUCROSE INJECTION 200 MG in SODIUM CHLORIDE 90 ML IVPB ONE (16:00)
[2022-08-23 17:47] VITALS: BMI 22.6
[2022-08-23] MEDS: SODIUM CHLORIDE 1 GM TABLET PO SCH (23:34)
[2022-08-24] MEDS: INSULIN SLIDING SCALE (NOVOLOG) 1 VIAL SQ SCH ×4 (06:32→22:10)
[2022-08-24] MEDS: SODIUM CHLORIDE 1 GM TABLET PO SCH ×2 (09:39→22:11)
[2022-08-24] MEDS: ISONIAZID 300 MG TABLET (FP) PO SCH (09:39)
[2022-08-24] MEDS: PANTOPRAZOLE 40 MG TABLET PO SCH (09:39)
[2022-08-24] MEDS: PYRIDOXINE HCL (B-6) 50 MG TABLET (FP) PO SCH (09:39)
[2022-08-24] MEDS: RIFAMPIN 300 MG CAPSULE PO SCH (09:43)
[2022-08-24 10:46] LABS: CALCIUM 7.7 mg/dL (8.5-10.1)
[2022-08-24 10:47] LABS: ALBUMIN 1.8 g/dl (3.4-5.0); BLOOD UREA NITROGEN 5.2 mg/dL (7-18)
[2022-08-24 10:50] LABS: CREATININE 0.7 mg/dL (0.55-1.3)
[2022-08-24 10:52] LABS: BILIRUBIN,TOTAL 0.3 mg/dL (0.2-1); TOT PROT 6.6 g/dl (6.4-8.2)
[2022-08-25] MEDS: INSULIN SLIDING SCALE (NOVOLOG) 1 VIAL SQ SCH ×4 (06:21→22:23)
[2022-08-25] MEDS: ISONIAZID 300 MG TABLET (FP) PO SCH (09:25)
[2022-08-25] MEDS: PANTOPRAZOLE 40 MG TABLET PO SCH (09:25)
[2022-08-25] MEDS: RIFAMPIN 300 MG CAPSULE PO SCH (09:25)
[2022-08-25] MEDS: PYRIDOXINE HCL (B-6) 50 MG TABLET (FP) PO SCH (09:25)
[2022-08-25] MEDS: SODIUM CHLORIDE 1 GM TABLET PO SCH ×2 (09:26→22:23)
[2022-08-25 10:00] LABS: INR 1.26 (0.83-1.09); PROTHROMBIN TIME (PATIENT) 14.5 SEC (9.7-13.0)
[2022-08-25 10:03] LABS: ACTIVATED PTT 62.7 SECONDS (25.2-36.5)
[2022-08-25] MEDS ORDERED: INSULIN (NOVOLOG) ASPART 100 UNITS/ML 10ML VIAL ONE (21:28)
[2022-08-26] MEDS: INSULIN SLIDING SCALE (NOVOLOG) 1 VIAL SQ SCH ×4 (07:02→22:26)
[2022-08-26] MEDS: FERROUS SO4 325 MG TABLET (FP) PO SCH (08:27)
[2022-08-26] MEDS ORDERED: IRON SUCROSE INJECTION 200 MG in SODIUM CHLORIDE 90 ML IVPB ONE (09:00)
[2022-08-26] MEDS: SODIUM CHLORIDE 1 GM TABLET PO SCH ×2 (09:16→22:26)
[2022-08-26] MEDS: RIFAMPIN 300 MG CAPSULE PO SCH (09:16)
[2022-08-26] MEDS: PYRIDOXINE HCL (B-6) 50 MG TABLET (FP) PO SCH (09:16)
[2022-08-26] MEDS: ISONIAZID 300 MG TABLET (FP) PO SCH (09:16)
[2022-08-26] MEDS: PANTOPRAZOLE 40 MG TABLET PO SCH (09:16)
[2022-08-26 10:34] LABS: BASO % 1.2 % (0-2.0); EOS % 1.3 % (0-4.5); HEMATOCRIT 26.4 % (35.4-49); HEMOGLOBIN 8.2 GM/dL (11.7-16.9); LYMPH % 17.6 % (8-40); MCHC 31.1 g/dl (32.0-35.9); MEAN CELL VOLUME 80.5 fl (80-96); MEAN PLT VOLUME 6.1 fl (7.5-11.1); MONO % 7.3 % (3.8-10.2); NEUT % 72.6 % (42.8-82.8); PLATELET COUNT 626 10^3/uL (134-434); RBC 3.28 M/mm3 (4.00-5.60); RDW 18.9 % (11.9-15.9); WHITE BLOOD COUNT 5.3 K/mm3 (4.0-10.0)
[2022-08-26 10:50] LABS: ALBUMIN 1.9 g/dl (3.4-5.0); CALCIUM 7.8 mg/dL (8.5-10.1)
[2022-08-26 10:56] LABS: BILIRUBIN,TOTAL 0.4 mg/dL (0.2-1); TOT PROT 6.9 g/dl (6.4-8.2)
[2022-08-26 10:57] LABS: CREATININE 0.6 mg/dL (0.55-1.3)
[2022-08-27] MEDS: INSULIN SLIDING SCALE (NOVOLOG) 1 VIAL SQ SCH ×5 (06:21→22:23)
[2022-08-27] MEDS: FERROUS SO4 325 MG TABLET (FP) PO SCH (08:31)
[2022-08-27] MEDS: RIFAMPIN 300 MG CAPSULE PO SCH (09:58)
[2022-08-27] MEDS: PANTOPRAZOLE 40 MG TABLET PO SCH (09:58)
[2022-08-27] MEDS: SODIUM CHLORIDE 1 GM TABLET PO SCH ×2 (09:58→22:24)
[2022-08-27] MEDS: ISONIAZID 300 MG TABLET (FP) PO SCH (09:58)
[2022-08-27] MEDS: PYRIDOXINE HCL (B-6) 50 MG TABLET (FP) PO SCH ×2 (09:59→11:45)
[2022-08-27 10:24] LABS: ALBUMIN 1.8 g/dl (3.4-5.0); BLOOD UREA NITROGEN 9.2 mg/dL (7-18)
[2022-08-27 10:26] LABS: CREATININE 0.6 mg/dL (0.55-1.3)
[2022-08-27 10:28] LABS: BILIRUBIN,TOTAL 0.3 mg/dL (0.2-1); TOT PROT 6.6 g/dl (6.4-8.2)
[2022-08-27] MEDS: POLYETHYLENE GLYCOL (HEALTHYLAX) 3350 17 GM PACKET PO SCH (22:23)
[2022-08-28 01:14] LABS: FACTOR 5 ACTIVITY 125 % (70-150)
[2022-08-28] MEDS: INSULIN SLIDING SCALE (NOVOLOG) 1 VIAL SQ SCH ×3 (06:06→17:06)
[2022-08-28 08:58] LABS: HEMATOCRIT 27.6 % (35.4-49); HEMOGLOBIN 8.8 GM/dL (11.7-16.9); MCH 25.7 pg (25.7-33.7); MCHC 31.8 g/dl (32.0-35.9); MEAN CELL VOLUME 80.7 fl (80-96); MEAN PLT VOLUME 6.3 fl (7.5-11.1); PLATELET COUNT 679 10^3/uL (134-434); RBC 3.42 M/mm3 (4.00-5.60); RDW 20.3 % (11.9-15.9); WHITE BLOOD COUNT 7.6 K/mm3 (4.0-10.0)
[2022-08-28 09:35] LABS: CALCIUM 8.1 mg/dL (8.5-10.1)
[2022-08-28 09:36] LABS: BLOOD UREA NITROGEN 8.7 mg/dL (7-18)
[2022-08-28 09:38] LABS: CREATININE 0.7 mg/dL (0.55-1.3)
[2022-08-28] MEDS: PANTOPRAZOLE 40 MG TABLET PO SCH (10:23)
[2022-08-28] MEDS: ISONIAZID 300 MG TABLET (FP) PO SCH (10:23)
[2022-08-28] MEDS: FERROUS SO4 325 MG TABLET (FP) PO SCH (10:23)
[2022-08-28] MEDS: PYRIDOXINE HCL (B-6) 50 MG TABLET (FP) PO SCH (10:23)
[2022-08-28] MEDS: POLYETHYLENE GLYCOL (HEALTHYLAX) 3350 17 GM PACKET PO SCH (10:23)
[2022-08-28] MEDS: RIFAMPIN 300 MG CAPSULE PO SCH (10:23)
[2022-08-28] MEDS: SODIUM CHLORIDE 1 GM TABLET PO SCH (10:23)
[2022-08-29] MEDS: POLYETHYLENE GLYCOL (HEALTHYLAX) 3350 17 GM PACKET PO SCH ×3 (00:47→22:41)
[2022-08-29] MEDS: INSULIN SLIDING SCALE (NOVOLOG) 1 VIAL SQ SCH ×5 (00:47→22:52)
[2022-08-29] MEDS: SODIUM CHLORIDE 1 GM TABLET PO SCH ×3 (00:48→22:41)
[2022-08-29] MEDS: PANTOPRAZOLE 40 MG TABLET PO SCH (09:04)
[2022-08-29] MEDS: FERROUS SO4 325 MG TABLET (FP) PO SCH (09:05)
[2022-08-29] MEDS: PYRIDOXINE HCL (B-6) 50 MG TABLET (FP) PO SCH (09:05)
[2022-08-29] MEDS: ISONIAZID 300 MG TABLET (FP) PO SCH (09:05)
[2022-08-29] MEDS: RIFAMPIN 300 MG CAPSULE PO SCH (09:05)
[2022-08-29] MEDS ORDERED: PEG 3350/NA SULF BICARB CL/KCL 4000 ML SOLN.RECON PO ONE (10:00)
[2022-08-29] MEDS ORDERED: BISACODYL 5 MG TABLET.DR (FP) PO ONE ×2 (20:00→22:45)
[2022-08-30] MEDS: INSULIN SLIDING SCALE (NOVOLOG) 1 VIAL SQ SCH ×3 (06:54→16:46)
[2022-08-30] MEDS: SODIUM CHLORIDE 1 GM TABLET PO SCH (09:23)
[2022-08-30] MEDS: RIFAMPIN 300 MG CAPSULE PO SCH (09:23)
[2022-08-30] MEDS: ISONIAZID 300 MG TABLET (FP) PO SCH (09:23)
[2022-08-30] MEDS: PANTOPRAZOLE 40 MG TABLET PO SCH (09:23)
[2022-08-30] MEDS: FERROUS SO4 325 MG TABLET (FP) PO SCH (09:23)
[2022-08-30] MEDS: POLYETHYLENE GLYCOL (HEALTHYLAX) 3350 17 GM PACKET PO SCH (09:23)
[2022-08-30] MEDS: PYRIDOXINE HCL (B-6) 50 MG TABLET (FP) PO SCH (09:23)
[2022-08-30 11:35] LABS: BASO % 0.8 % (0-2.0); EOS % 0.7 % (0-4.5); HEMATOCRIT 28.9 % (35.4-49); LYMPH % 20.6 % (8-40); MCH 25.3 pg (25.7-33.7); MCHC 31.3 g/dl (32.0-35.9); MEAN PLT VOLUME 6.4 fl (7.5-11.1); MONO % 8.1 % (3.8-10.2); NEUT % 69.8 % (42.8-82.8); PLATELET COUNT 640 10^3/uL (134-434); RBC 3.57 M/mm3 (4.00-5.60); RDW 20.6 % (11.9-15.9); WHITE BLOOD COUNT 6.3 K/mm3 (4.0-10.0)
[2022-08-30 11:41] LABS: INR 1.35 (0.83-1.09); PROTHROMBIN TIME (PATIENT) 15.6 SEC (9.7-13.0)
[2022-08-30 12:12] LABS: ALBUMIN 1.9 g/dl (3.4-5.0); BLOOD UREA NITROGEN 6.2 mg/dL (7-18); CALCIUM 8.2 mg/dL (8.5-10.1)
[2022-08-30 12:15] LABS: CREATININE 0.6 mg/dL (0.55-1.3)
[2022-08-30 12:17] LABS: BILIRUBIN,TOTAL 0.6 mg/dL (0.2-1); TOT PROT 7.1 g/dl (6.4-8.2)
[2022-08-30 12:33] LABS: ANISOCYTOSIS 2+; MACROCYTOSIS 1+; TARGET CELLS 1+
[2022-08-30] MEDS ORDERED: TETRACAINE/BENZOCAINE/BUTAMBEN 20 GM SPR TP ONE (13:36)
[2022-08-30 14:28] VITALS: RESP 18
[2022-08-30 16:48] VITALS: BP 117/59; PULSE 84; TEMP 98.1
[2022-08-30] MEDS ORDERED: PANTOPRAZOLE 40 MG TABLET PO SCH (22:00)
== END 2022-08-30 18:47 | DRG 384 ==
LOC: JER 14:26 → JERBED 19:58 → J5S 08-22 14:46 → J6S 08-22 19:01 → OBSVTOIN 08-27 15:00
PROVIDERS: ADMIT Internal Medicine; ATTEND Family Medicine
PROC: 0DB68ZX Excision of Stomach, Via Natural or Artificial Opening Endoscopic, Diagnostic (ICD-10-PCS; principal; 2022-08-30 13:30)
DX: K25.3 Acute gastric ulcer without hemorrhage or perforation (principal); A15.0 Tuberculosis of lung; E87.1 Hypo-osmolality and hyponatremia; E46 Unspecified protein-calorie malnutrition; R64 Cachexia; D50.9 Iron deficiency anemia, unspecified; E11.40 Type 2 diabetes mellitus with diabetic neuropathy, unspecified; R62.7 Adult failure to thrive; Z68.22 Body mass index [BMI] 22.0-22.9, adult; E11.65 Type 2 diabetes mellitus with hyperglycemia
CPT/HCPCS: 0241U-QW; 36415; 70450-TC; 71045-TC-FY; 71250-TC; 74177-TC; 80048; 80053; 82436; 82533; 82728; 82962; 83036; 83540; 83550; 83615; 83735; 83930; 83935; 84100; 84133; 84300; 84439; 84443; 84479; 85025; 85027; 85045; 85220; 85240; 85260; 85379; 85384; 85610; 85730; 86850; 86900; 86901; 88305-TC; 88341-TC; 93005; 93010; 97116-GP; 97162-GP; 99285-25; C9803-CS; G0378; J1756; U0003; U0005